=== PATIENT | female | born 1945 | race Caucasian/White ===

== ENCOUNTER 2021-03-17 08:34 | Outpatient (CLI) | payer MEDICARE | END 2021-03-17 08:35 | disposition home or self-care (01) | LOC: CSHMAMMO 08:34 | PROVIDERS: ATTEND Family Medicine | DX: Z12.31 Encounter for screening mammogram for malignant neoplasm of breast (principal); M85.80 Other specified disorders of bone density and structure, unspecified site; Z78.0 Asymptomatic menopausal state | CPT/HCPCS: 77063; 77067; 77080 ==

== ENCOUNTER 2024-11-24 16:13 | Outpatient (CLI) | payer MEDICARE | END 2024-11-24 16:14 | disposition home or self-care (01) | LOC: CSHRAD 16:13 | PROVIDERS: ATTEND Family Medicine | DX: R05.9 Cough, unspecified (principal); D50.9 Iron deficiency anemia, unspecified; R07.9 Chest pain, unspecified; M25.50 Pain in unspecified joint; Z79.899 Other long term (current) drug therapy | CPT/HCPCS: 36415; 71046; 80053; 82550; 83540; 83550; 83735; 83880; 84484; 85025; 86140 ==

== ENCOUNTER 2025-07-01 10:34 | Outpatient (CLI) | payer MEDICARE | END 2025-07-01 10:35 | disposition home or self-care (01) | LOC: CSHCT 10:34 | PROVIDERS: ATTEND Family Medicine | DX: Z04.3 Encounter for examination and observation following other accident (principal); Z79.01 Long term (current) use of anticoagulants; W19.XXXA Unspecified fall, initial encounter | CPT/HCPCS: 70450 ==